=== PATIENT | female | born 1985 | race Hispanic/Latino ===

== ENCOUNTER 2017-03-09 03:39 | Inpatient (IN) ==
[2017-03-09] MEDS ORDERED: STADOL IV PRN (04:08)
[2017-03-09] MEDS ORDERED: PEPCID IV PRN (04:08)
[2017-03-09] MEDS ORDERED: ZOFRAN IV PRN (04:08)
[2017-03-09] MEDS ORDERED: TYLENOL PO PRN (04:08)
[2017-03-09] MEDS ORDERED: PEPCID PO PRN (04:08)
[2017-03-09] MEDS ORDERED: PITOCIN 30 UNITS/LR 30 UNITS/500 ML IV.SOLN IV SCH (04:08)
[2017-03-09] MEDS ORDERED: KEFZOL 1 GM/D5W 1 GM/50 ML IVPB IV PRN (04:08)
[2017-03-09] MEDS ORDERED: SODIUM CHLORIDE 0.9% INJ SCH (04:15)
[2017-03-09] MEDS: LR 1,000 ML IV SCH ×2 (05:05→08:14)
[2017-03-09 05:33] LABS: MANUAL DIFF NEEDED? NO
[2017-03-09 05:33] LABS: URINE SOURCE VOIDED
[2017-03-09 05:36] LABS: BASO% 0.2 % (0.0-0.8); EOS# 0.11 X1000 (0.0-0.7); EOS% 1.3 % (0.0-10.0); HEMATOCRIT 35.4 % (37.0-47.0); HEMOGLOBIN 12.3 g/dL (12.0-16.0); IMM GRAN# 0.02 X1000 (0.0-0.04); IMM GRAN% 0.2 % (0.0-0.5); LYMPH# 1.67 X1000 (1.2-3.4); MCH 27.2 PG (27-31); MCHC 34.7 g/dL (33-37); MCV 78.1 FL (81-99); MONO# 0.75 X1000 (0.11-0.59); MPV 11.5 FL (7.4-10.4); NEUT% 69.3 % (42.2-75.2); PLT 229 X1000 (130-400); RBC 4.53 XMIL (4.2-5.4)
[2017-03-09 05:55] LABS: BILIRUBIN URINE NEGATIVE (NEGATIVE); BLOOD URINE 4+ (NEGATIVE); CLARITY SL. CLOUDY (CLEAR); COLOR YELLOW; GLUCOSE URINE NEGATIVE (NEGATIVE); LEUKOCYTES URINE NEGATIVE (NEGATIVE); NITRITE URINE NEGATIVE (NEGATIVE); PROTEIN URINE TRACE mg/dL (NEGATIVE); UROBILINOGEN URINE NORMAL
[2017-03-09] MEDS ORDERED: FENTANYL-BUPIV-NS 2 MCG-0.1% 200 ML EPIDURAL SCH (08:00)
[2017-03-09] MEDS ORDERED: MARCAINE 0.25% PF INJ ONE (08:00)
[2017-03-09] MEDS ORDERED: MINERAL OIL PO ONE (10:18)
[2017-03-09] MEDS ORDERED: XYLOCAINE-MPF 1% INJ ONE (10:21)
[2017-03-09] MEDS ORDERED: PHENERGAN IV ONE (11:24)
[2017-03-09] MEDS ORDERED: DEMEROL IV ONE (11:24)
[2017-03-09] MEDS ORDERED: SODIUM CHLORIDE 0.9% INJ ONE (11:24)
[2017-03-09] MEDS ORDERED: AMBIEN PO PRN (11:39)
[2017-03-09] MEDS ORDERED: MINERAL OIL PO PRN (11:39)
[2017-03-09] MEDS ORDERED: PITOCIN 20 UNITS/LR 20 UNITS/1,000 ML IV.SOLN IV SCH (11:39)
[2017-03-09] MEDS ORDERED: PERI MEDS (DERMOPLAST/NUPERCAINAL/TUCKS) MISC PRN (11:39)
[2017-03-09] MEDS ORDERED: PITOCIN IM PRN (11:39)
[2017-03-09] MEDS ORDERED: PITOCIN 30 UNITS/LR 30 UNITS/500 ML IV.SOLN IV ONE (11:39)
[2017-03-09] MEDS ORDERED: M-M-R II VACCINE SUBQ ONE (11:39)
[2017-03-09] MEDS ORDERED: BENADRYL PO PRN (11:39)
[2017-03-09] MEDS ORDERED: HYDROXYZINE IM PRN (11:39)
[2017-03-09] MEDS ORDERED: CYTOTEC PO PRN (11:39)
[2017-03-09] MEDS ORDERED: BENADRYL IV PRN (11:39)
[2017-03-09] MEDS ORDERED: XYLOCAINE-MPF 1% INJ PRN (11:39)
[2017-03-09] MEDS ORDERED: BOOSTRIX VACCINE IM ONE (11:39)
[2017-03-09] MEDS ORDERED: HYDROXYZINE PO PRN (11:39)
[2017-03-09] MEDS ORDERED: NORCO-5 PO PRN (11:39)
[2017-03-09] MEDS: KEFZOL 1 GM/D5W 1 GM/50 ML IVPB IV SCH ×2 (12:23→20:18)
--- NOTE | 2017-03-09 13:58 | OPERATIVE NOTE ---
PROCEDURE DATE: 03/09/2017 PREDELIVERY DIAGNOSES: 1. Intrauterine at term. 2. Active labor with spontaneous rupture of membranes. POST DELIVERY DIAGNOSES: 1. Intrauterine at term. 2. Active labor with spontaneous rupture of membranes. 3. Third degree laceration. PROCEDURE: Vaginal delivery. PHYSICIAN: Dr. Vinnie Anthony. ANESTHESIA: IV and local anesthetic used. INFANT: Viable female , appropriate weight and Apgars. ESTIMATED BLOOD LOSS: 150 mL. COUNTS: Correct. DELIVERY NOTE: Ms. Reyes is a 31-year-old, 2, para 1, at term who presented with spontaneous rupture of membranes. She was augmented with Pitocin, advanced rapidly, had a successful vaginal delivery with good resultant third degree laceration, occiput anterior, shoulders normal. Cord doubly clamped and cut. 3-vessel cord. Care of taken over by nursery personnel. Cord blood was obtained. Placenta delivered intact. It did appear normal. Inspection revealed third degree laceration. The anal sphincter was repaired with interrupted stitches of 0 Polysorb. The second-degree port was then repaired in the usual fashion with 2-0 Vicryl. Rectovaginal exam did not reveal any defects. All counts were correct. The vaginal sweep; no clots or foreign material. Expect routine . Will add Ancef 1 g q. 8 due to contamination at delivery and the extensive vaginal repair. cc: Vinnie Anthony MD
[2017-03-09] MEDS: MOTRIN PO PRN (19:13)
[2017-03-09] MEDS: NORCO-10 PO PRN (19:13)
[2017-03-09] MEDS ORDERED: EPIFOAM FOAM TOP PRN (19:40)
[2017-03-09] MEDS: PERICOLACE PO SCH (22:37)
[2017-03-10] MEDS: NORCO-10 PO PRN ×4 (03:10→23:46)
[2017-03-10] MEDS: MOTRIN PO PRN ×3 (03:10→23:46)
[2017-03-10] MEDS ORDERED: LR 500 ML ONE (04:02)
[2017-03-10] MEDS: KEFZOL 1 GM/D5W 1 GM/50 ML IVPB IV SCH (04:16)
[2017-03-10 06:41] LABS: MANUAL DIFF NEEDED? NO
[2017-03-10 08:58] LABS: BASO% 0.2 % (0.0-0.8); EOS# 0.07 X1000 (0.0-0.7); EOS% 0.6 % (0.0-10.0); HEMATOCRIT 36.4 % (37.0-47.0); HEMOGLOBIN 12.1 g/dL (12.0-16.0); IMM GRAN# 0.03 X1000 (0.0-0.04); IMM GRAN% 0.3 % (0.0-0.5); LYMPH# 2.23 X1000 (1.2-3.4); LYMPH% 19.2 % (20.5-51.1); MCH 26.5 PG (27-31); MCHC 33.2 g/dL (33-37); MCV 79.8 FL (81-99); MONO# 0.78 X1000 (0.11-0.59); MONO% 6.7 % (1.7-9.3); MPV 11.1 FL (7.4-10.4); PLT 220 X1000 (130-400); RBC 4.56 XMIL (4.2-5.4)
[2017-03-10] MEDS ORDERED: PRECARE PO SCH (09:00)
--- NOTE | 2017-03-10 12:04 | PROGRESS NOTE ---
DATE: 03/10/2017 SUBJECTIVE: She is day 1. She is complaining of a slight amount of back pain. She is ambulating. She is voiding. She is tolerating p.o. OBJECTIVE: Vital signs: Temp 98.4 degrees, blood pressure 149/88, pulse 52, respirations 20. General: She is alert and cooperative. She is not appear to be in any distress. Abdomen: Slightly distended. Her uterus is firm and nontender. Extremities: There is +2 lower extremity edema. LABORATORY VALUES: Hemoglobin and hematocrit of 12/36, essentially unchanged from predelivery. PLAN: So, will continue present management. Expect routine course. cc: Vinnie Anthony MD
[2017-03-10] MEDS: PERICOLACE PO SCH (23:46)
--- NOTE | 2017-03-11 13:05 | DISCHARGE SUMMARY ---
ADMISSION DATE: 03/09/2017 DISCHARGE DATE: 03/11/2017 ADMITTING DIAGNOSIS: Term , spontaneous rupture of membranes. Discharged 03/11. DIAGNOSES: 1. Term , spontaneous rupture of membranes. 2. Vaginal delivery with 3rd degree perineal laceration. CONDITION: Stable. DIET: As tolerated. ACTIVITY: Routine . MEDICATIONS: [place] 5, Motrin 800, stool softeners. She is to continue her stool softeners for 3 months and she is to follow up in the office in 6 weeks. HOSPITAL COURSE: Please refer to Ms. Reyes's records and delivery note. Ms. Reyes was admitted with spontaneous rupture of membrane and was augmented, had a vaginal delivery complicated by a third degree laceration which was repaired in layers. Afterwards she has done well. She is ambulating. She is voiding she is tolerating p.o. She is without complaints and desiring discharge. Vital Signs: Temperature 97 degrees, blood pressure 157/86. Pulse 63. Respirations 18. She is alert and cooperative, in no distress. Neck is supple. Lungs are clear. Heart has regular sinus rhythm. Abdomen is distended. Uterus is firm and nontender. Plus 2 lower extremity edema. LABORATORY VALUES: Post delivery, hemoglobin and hematocrit 12/36. DISPOSITION: We will discharge with above instructions. cc: Vinnie Anthony MD
== END 2017-03-11 13:00 | disposition home or self-care (01) ==
LOC: P.NBC 03:39 → P.LD 03:50
PROVIDERS: ADMIT Obstetrics & Gynecology; ATTEND Obstetrics & Gynecology